=== PATIENT | male | born 1960 | race Caucasian/White ===

== ENCOUNTER → 2016-10-19 | Outpatient (CLI) | payer OTHER ==
[~2016-10-19] MED LIST: OMNIPAQUE 350 MG/ML, 150 ML BOTTLE ONE
== END | disposition home or self-care (01) ==
LOC: CFH 10:57
PROVIDERS: ATTEND Specialist
DX: C83.11 Mantle cell lymphoma, lymph nodes of head, face, and neck (principal); I25.10 Atherosclerotic heart disease of native coronary artery without angina pectoris; K57.30 Diverticulosis of large intestine without perforation or abscess without bleeding
CPT/HCPCS: 70491; 71260; 74177; Q9967

== ENCOUNTER → 2017-06-07 | Outpatient (CLI) | payer BC, OTHER | END | disposition home or self-care (01) | LOC: CFH 10:55 | PROVIDERS: ATTEND Specialist | DX: C83.11 Mantle cell lymphoma, lymph nodes of head, face, and neck (principal) | CPT/HCPCS: 70491; 71260; 74177; Q9967 ==

== ENCOUNTER → 2018-05-03 | Outpatient (CLI) | payer OTHER | END | disposition home or self-care (01) | LOC: CFH 10:58 | PROVIDERS: ATTEND Specialist | DX: C83.11 Mantle cell lymphoma, lymph nodes of head, face, and neck (principal); K57.30 Diverticulosis of large intestine without perforation or abscess without bleeding | CPT/HCPCS: 70491; 71260; 74177; 82565; Q9967 ==